=== PATIENT | female | born 1995 | race Native Hawaiian/Other Pacific Islander ===

== ENCOUNTER 2018-10-05 01:15 | Inpatient (IN) | payer OTHER ==
--- NOTE | 2018-10-05 02:14 | OBHP ---
Datetime: 10/05/2018 01:59 IP Adm Impression: Term, intrauterine IP Admit Plan: Admit to unit Admit Comment, IP Provider: 22yo at 39.6 weeks OPAL: 10/06/18 by LMP:12/30/17 presents with c/o rikki kage of fluid since 12am and contractions. Pt denies vaginal bleeding. (+) movements. PNC: Dr. Clifton POb: G1: current ; no complications PGYN: denies STI's/fibroids/cysts LMP: 12/30/17 PMHX: anemia PSHX: denies ALL: NKDA MEDS: PNV, ferrous sulfate SHX: denies x 3 FHX: denies A/P: 22yo at 39.6wks- SROM Admit to L_D- see admission note Pelvic Type - PN: Adequate Extremities - PN: Normal Abdomen - PN: Normal General - PN: Normal FHR - Baseline A Provider: 130 Amniotic Fluid Color, Provider: Clear Membranes, Provider: Ruptured Comments, ACOG Physical Exam: Abd: gravid Pool Provider: Positive Vital Signs Provider: Reviewed IP Chief Complaint: Uterine contractions; Suspected ruptured membranes NICHD Variability Prov Fetus A: Moderate 6-25bpm NICHD Accel Fetus A IP Provider: 15X15 FHR Category Provider Fetus A: Category I NICHD Decel Fetus A IP Provider: None Dilatation, Provider: 3 Effacement, Provider: 80 Station, Provider: -2
--- NOTE | 2018-10-05 02:21 | OBADHP ---
Datetime: 10/05/2018 01:59 Admit Comment, IP Provider: 22yo at 39.6 weeks OPAL: 10/06/18 by LMP:12/30/17 presents with c/o rikki kage of fluid since 12am and contractions. Pt denies vaginal bleeding. (+) movements. PNC: Dr. Clifton POb: G1: current ; no complications PGYN: denies STI's/fibroids/cysts LMP: 12/30/17 PMHX: anemia PSHX: denies ALL: NKDA MEDS: PNV, ferrous sulfate SHX: denies x 3 FHX: denies A/P: 22yo at 39.6wks- SROM 1) VSS 2) Admit to L_D 3) continous toco/efm 4) IVF @125cc/hr 5) For Pen G 6) for pitocin in 1 hour 7 )Epidural PRN 8) Continue to monitor 9) Plan of care discussed with Dr. Clifton Pelvic Type - PN: Adequate Extremities - PN: Normal Abdomen - PN: Normal General - PN: Normal FHR - Baseline A Provider: 130 Amniotic Fluid Color, Provider: Clear Membranes, Provider: Ruptured Comments, ACOG Physical Exam: Abd: gravid Pool Provider: Positive Vital Signs Provider: Reviewed IP Chief Complaint: Uterine contractions; Suspected ruptured membranes NICHD Variability Prov Fetus A: Moderate 6-25bpm NICHD Accel Fetus A IP Provider: 15X15 FHR Category Provider Fetus A: Category I NICHD Decel Fetus A IP Provider: None Dilatation, Provider: 3 Effacement, Provider: 80 Station, Provider: -2 IP Adm Impression: Term, intrauterine IP Admit Plan: Admit to unit
[2018-10-05 02:25] VITALS: BMI 31.6
[2018-10-05] MEDS ORDERED: Nalbuphine HCL 10 mg/ml Ampule IVP ONE (02:37)
[2018-10-05] MEDS ORDERED: DiphenhydrAMINE 50 mg/ml Inj IVP STA (02:38)
[2018-10-05] MEDS ORDERED: Penicillin G 5 Million Unit Vial IVPB ONE (02:44)
[2018-10-05] MEDS ORDERED: Nalbuphine HCL 10 mg/ml Ampule ONE (02:45)
[2018-10-05] MEDS ORDERED: DiphenhydrAMINE 50 mg/ml Inj ONE (02:45)
[2018-10-05] MEDS ORDERED: Lactated Ringer's 1,000 ML IV ONE (02:54)
[2018-10-05 03:02] LABS: BASO % 0.2 % (0.0-2.0); EOS # 0.1 K/uL (0.0-0.7); EOS % 0.9 % (0.0-4.0); HEMOGLOBIN 11.9 g/dL (11.0-16.0); LYMPH # 3.1 K/uL (1.0-4.3); LYMPH % 19.2 % (20.0-40.0); MEAN CELL VOLUME 87.7 fL (81.0-99.0); MEAN CORPUSCULAR HEMOGLOBIN 28.9 pg (27.0-31.0); MEAN CORPUSCULAR HGB CONC 32.9 g/dL (33.0-37.0); MEAN PLATELET VOLUME 8.5 fL (7.2-11.7); MONO # 1.5 K/uL (0.0-0.8); MONO % 9.2 % (0.0-10.0); NEUT # 11.3 K/uL (1.8-7.0); NEUT % 70.5 % (50.0-75.0); NRBC % 0.1 % (0.0-2.0); RBC 4.13 Mil/uL (3.80-5.20); RED CELL DISTRIBUTION WIDTH 13.4 % (11.5-14.5)
[2018-10-05 03:12] LABS: ALB/GLOB RATIO 1.2 (1.0-2.1); ALBUMIN 3.8 g/dL (3.5-5.0); ALT/SGPT 16 U/L (9-52); AST/SGOT 19 U/L (14-36); BLOOD UREA NITROGEN 5 mg/dL (7-17); CALCIUM 9.2 mg/dl (8.6-10.4); GFR NON-AFRICAN AMERICAN > 60
[2018-10-05] MEDS ORDERED: Lactated Ringer's 1,000 ML IV SCH (04:00)
[2018-10-05] MEDS ORDERED: Fentanyl/Bupivacaine HCl 250 ML EPI ONE (05:52)
[2018-10-05 09:21] LABS: SQUAMOUS EPITHIAL < 1 /hpf (0-5); URINE BILIRUBIN NEGATIVE (NEGATIVE); URINE BLOOD NEGATIVE (NEGATIVE); URINE CLARITY Clear (Clear); URINE COLOR Yellow (YELLOW); URINE GLUCOSE (UA) 1+ mg/dL (Normal); URINE LEUKOCYTE ESTERASE NEG Leu/uL (Negative); URINE PROTEIN NEGATIVE (NEGATIVE); URINE UROBILINOGEN NORMAL mg/dL (0.2-1.0)
[2018-10-05] MEDS ORDERED: Bupivacaine HCl 0.5% PF (10 ml) Inj ONE (13:06)
[2018-10-05] MEDS ORDERED: Lidocaine Hydrochloride 5 ML INJ ONE (15:21)
--- NOTE | 2018-10-05 16:18 | OBPN ---
Datetime: 10/05/2018 16:00 IP Progress Impression: Normal progression of labor IP Progress Plan: Continue present management; Anticipate Vaginal Delivery Membranes, Provider: Ruptured FHR - Baseline A Provider: 150 Gestation - Est Wks by US: 39.6 Presentation-Admit: Vertex IP Progress Note Comment: pt tisha adn elxamien f/o pressure s/ pepdural VSS VE: 10cm a/p @ 39.6 wks in labor, fully dilated strat pushing anticpa Vital Signs Provider: Reviewed NICHD Variability Prov Fetus A: Moderate 6-25bpm Dilatation, Provider: 10 Effacement, Provider: 100 Station, Provider: 1 Datetime: 10/05/2018 01:59 Pool Provider: Positive Amniotic Fluid Color, Provider: Clear NICHD Accel Fetus A IP Provider: 15X15 FHR Category Provider Fetus A: Category I NICHD Decel Fetus A IP Provider: None
[2018-10-05] MEDS ORDERED: Oxytocin 30 UNIT 30 UNITS/500 ML BAG IV SCH (16:30)
[2018-10-05] MEDS ORDERED: Lidocaine 2% MPF (5 ml) Inj ONE (17:33)
[2018-10-05] MEDS ORDERED: Oxycodone/Acetaminophen 5/325 mg Tab PO PRN ×2 (17:45)
[2018-10-05] MEDS ORDERED: Benzocaine/Menthol 20%-0.5% Topical Spray (60 ml) TOP PRN (17:45)
--- NOTE | 2018-10-05 17:50 | OBDS ---
DELIVERY PERSONNEL Nurse Sand Operator Certified: N/A Delivery Doctor: Sharona Clifton MD Scrub Nurse: Fernando Cast Transfusion Aide. Plastics [employer] Inspector: Diana Carranza RN Anesthesiologist: Dr. Espitia Phlebotomy Instructor: N/A Resident: N/A MATERNAL INFORMATION Delivery Anesthesia: Epidural Estimated Blood Loss (ml): 400 Placenta Cultured: No RN Comments: Dr. Chamberlain (Neonatalogist) present at delivery. Joan Montero RN present at delivery. Pt.'s present at delivery. Provider Comments: pt was fully dilated and pushing. verbal consent given for episotmy and vacumn r/ b/a/i dw patient, pt accepted.. local anesthetic given, mediolateral episotsmy perofmred. vacumn appl ied, no cervix, suture intially papated. atruamtic, deliveyr of head with 1 push and pull, vacumn rel ated. no nuchal cord noted. aturmati, spotaneous delivery of anterioa followed by posteiro shoudler f ollowed by deliveyr of the body. umbicla cord clamed and cut and baby hadned to awaiting pediatrian. cord blood adn cord gases collected adn snet x 2. Spotnaeous delivery of intact placenta with membran es. fundus firm, good hemstaiss, righ tmediolateral episotmy repaired after local anestehes with 2-0 and 3-0 and chormic. good hemosis, no complicaitns. apgars 9,9 weigh tof 6lbs 2 ounces rop posistion ebl 400ml complicaotins LABOR SUMMARY EDC: 10/06/2018 00:00 No. Babies in Womb: 1 Attempted: No Labor Anesthesia: Epidural LABOR INFORMATION Reason for Induction: Not Applicable Reason for Induction Other: N/A Onset of Labor: 10/04/2018 23:30 Complete Dilatation: 10/05/2018 14:04 Other Ripening Agents: N/A Oxytocin: N/A Group B Beta Strep: Unknown Antibiotics # of Doses: 2 Antibiotics Time of Last Dose: 10/05/18 @ 14:41 Steroids Given: None Reason Steroids Not Administered: Not Applicable Other Reason Not Administered: N/A MEMBRANES Membranes Rupture Method: Spontaneous Rupture of Membranes: 10/05/2018 00:30 Length of Rupture (hrs): 16.95 Amniotic Fluid Color: Clear Amniotic Fluid Amount: Moderate Amniotic Fluid Odor: Normal STAGES OF LABOR Stage 1 hrs: 14 Stage 1 min: 34 Stage 2 hrs: 3 Stage 2 min: 23 Stage 3 hrs: 0 Stage 3 min: 5 Total Time in Labor hrs: 18 Total Time in Labor min: 2 BABY A INFORMATION Infant Delivery Date/Time: 10/05/2018 17:27 Method of Delivery: Vaginal Born in Route : No : N/A Forceps: N/A Vacuum Extraction: Successful Shoulder Dystocia : No SHOULDER DYSTOCIA BABY A Delivery Date/Time: 10/05/2018 17:27 PRESENTATION/POSITION BABY A Presentation: Cephalic Cephalic Presentation: Vertex Vertex Position: Right Occipital Posterior Breech Presentation: N/A PLACENTA INFORMATION BABY A Placenta Delivery Time : 10/05/2018 17:32 Placenta Method of Delivery: Spontaneous Placenta Status: Delivered SCORES BABY A Heart Rate 1 min: >100 bpm Resp Effort 1 min: Absent Reflex Irritability 1 min: Cough or Sneeze or Pulls Away Muscle Tone 1 min: Some Flexion of Extremities Color 1 min: Body [place], Extremities Blue Resuscitation Effort 1 min: Tactile Stimulation; Oxygen; PPV/NCPAP SCORE 1 MIN: 6 Heart Rate 5 min: >100 bpm Resp Effort 5 min: Good Cry Reflex Irritability 5 min: Cough or Sneeze or Pulls Away Muscle Tone 5 min: Active Motion Color 5 min: Body [place], Extremities Blue Resuscitation Effort 5 min: N/A SCORE 5 MIN: 9 INFANT INFORMATION BABY A Gestational Age at Delivery: 39.6 Gestational Status: Term Infant Outcome : Liveborn Condition : Stable Sex: Female IDENTIFICATION/MEDS BABY A ID Band Number: [id number] Sensor Number: [id number] WEIGHT/LENGTH BABY A Birthweight (gms): 2770 Weight (lb): 6 Weight (oz): 2 ASSESSMENT BABY A Infant Complications: Decreased Variability; Multiple Variable Decels Physical Findings at Delivery: Caput Succedaneum Infant Respirations: Appears Normal Clinical Cytogeneticist Scientist/ALS Called : Yes Infant Care By: Dr. Cintia Montero, RN
[2018-10-06 08:43] LABS: BASO # 0.1 K/uL (0.0-0.2); BASO % 0.4 % (0.0-2.0); EOS # 0.1 K/uL (0.0-0.7); EOS % 0.5 % (0.0-4.0); LYMPH # 3.7 K/uL (1.0-4.3); LYMPH % 16.3 % (20.0-40.0); MEAN CELL VOLUME 89.5 fL (81.0-99.0); MEAN CORPUSCULAR HEMOGLOBIN 29.8 pg (27.0-31.0); MEAN CORPUSCULAR HGB CONC 33.3 g/dL (33.0-37.0); MEAN PLATELET VOLUME 8.7 fL (7.2-11.7); MONO # 1.6 K/uL (0.0-0.8); MONO % 7.1 % (0.0-10.0); NEUT # 17.1 K/uL (1.8-7.0); NEUT % 75.7 % (50.0-75.0); RBC 3.07 Mil/uL (3.80-5.20); RED CELL DISTRIBUTION WIDTH 13.5 % (11.5-14.5); WHITE BLOOD COUNT 22.6 K/uL (4.8-10.8)
[2018-10-06 08:53] LABS: HEMOGLOBIN 9.2 g/dL (11.0-16.0)
[2018-10-06] MEDS: Multiple Vitamins Tab PO SCH (09:06)
[2018-10-06] MEDS ORDERED: ceFAZolin IV 1 gm in Dextrose 1 GM/50 ML BAG IVPB SCH (10:00)
[2018-10-06] MEDS: ceFAZolin 1 gm in NS 1 GM/100 ML BAG IVPB SCH ×2 (10:31→17:31)
[2018-10-06] MEDS ORDERED: Oxytocin 20 units in LR 0 ML IV ONE (14:20)
[2018-10-07] MEDS: ceFAZolin 1 gm in NS 1 GM/100 ML BAG IVPB SCH (01:44)
[2018-10-07 09:06] LABS: BASO % 0.4 % (0.0-2.0); EOS # 0.3 K/uL (0.0-0.7); EOS % 2.3 % (0.0-4.0); HEMOGLOBIN 8.5 g/dL (11.0-16.0); LYMPH # 2.7 K/uL (1.0-4.3); LYMPH % 21.2 % (20.0-40.0); MEAN CELL VOLUME 89.9 fL (81.0-99.0); MEAN CORPUSCULAR HEMOGLOBIN 29.1 pg (27.0-31.0); MEAN CORPUSCULAR HGB CONC 32.4 g/dL (33.0-37.0); MEAN PLATELET VOLUME 8.6 fL (7.2-11.7); MONO % 7.9 % (0.0-10.0); NEUT # 8.7 K/uL (1.8-7.0); NEUT % 68.2 % (50.0-75.0); RBC 2.93 Mil/uL (3.80-5.20); RED CELL DISTRIBUTION WIDTH 13.6 % (11.5-14.5); WHITE BLOOD COUNT 12.8 K/uL (4.8-10.8)
[2018-10-07] MEDS ORDERED: Influenza Vaccine 60 mcg/0.5 mL SYR (4YR UP) IM ONE (10:35)
[2018-10-07] MEDS: Multiple Vitamins Tab PO SCH (11:14)
[2018-10-07] MEDS ORDERED: ePHEDrine 50 mg/ml Inj ONE (11:19)
[2018-10-07] MEDS ORDERED: Phenylephrine 10 mg/ml Inj ONE (11:19)
--- NOTE | 2018-10-07 11:37 | OBDCSUM ---
Datetime: 10/07/2018 11:35 Discharged to, Provider: Home Follow up at, Provider: Dr duvall Disch Instr Activity: Normal activity Disch Instr Diet: Regular Discharge Instructions, Provider: Routine instructions given Discharge Diagnosis, Provider: Term Delivered Discharge Time: 10/07/2018 11:35 Follow up in weeks, Provider: 6 week Disch Referrals: None Contraception discussed, Prov: Yes Disch Activity Restrictions: No exercising; No lifting Contraception after Delivery: Not Planning to Use
[2018-10-07 21:09] VITALS: BP 101/68; PULSE 86; RESP 20; TEMP 97; O2SAT 98
== END 2018-10-07 16:50 | disposition home or self-care (01) | DRG 807 ==
LOC: C.EROB 01:15 → C.4D 02:00 → C.4M 20:15
PROVIDERS: ADMIT Obstetrics & Gynecology; ATTEND Obstetrics & Gynecology
PROC: 10D07Z6 Extraction of Products of Conception, Vacuum, Via Natural or Artificial Opening (ICD-10-PCS; principal; 2018-10-05)
PROC: 0W8NXZZ Division of Female Perineum, External Approach (ICD-10-PCS; 2018-10-05)
DX: O76 Abnormality in fetal heart rate and rhythm complicating labor and delivery (principal); Z37.0 Single live birth; Z3A.39 39 weeks gestation of pregnancy